=== PATIENT | female | born 1990 | race Caucasian/White ===

== ENCOUNTER → 2016-06-20 | Outpatient (CLI) | payer SELFPAY ==
[~2016-06-20] MED LIST: BENZ-22 PO; PRED20TA PO
[2016-06-20 17:59] VITALS: BP 121/80
--- NOTE | 2016-06-20 17:59 | Urgent Care T Sheet Gen (E) ---
Intake General Temperature (Fahrenheit): 97.3 Pulse: 109 Blood Pressure Systolic: 121 Blood Pressure Diastolic: 80 Respirations: 20 SPO2: 98 Description of Symptoms Patient presents with illness since Saturday. Notes low grade fever up to 99.9. Also notes intermittent nasal congestion, PND and dry cough. Been taking ibuprofen, dayquil and cough drops without lasting relief. Respiratory Constitutional Symptoms: Fever Malaise EENTM: Nose Congestion Throat pain Respiratory: Cough Cardiovascular: No symptoms reported Gastrointestinal/Abdominal: No symptoms reported All Other Systems Reviewed Remaining Systems: All other systems reviewed with negative findings Physical Exam Physical Exam General Appearance: WD/WN No apparent distress Eyes, Ears, Nose, Throat Ex: TMs normal Pharyngeal erythema (cobblestone appearance with clear, thin PND) Other (clear, thin nasal drainage) Neck Exam: SuppleNo Lymphadenopathy Respiratory Exam: Lungs clear (dry cough throughout exam.) Normal breath sounds Cardiovascular Exam: Regular rate, rhythm Departure Urgent Care Impression Impression: Primary Impression: URI (upper respiratory infection) Qualified Code: J00 - Acute nasopharyngitis [common cold] Departure Disposition: HOME OR SELF-CARE Condition: Stable Additional Instructions: Most likely a viral URI. Will treat symptomatically. rest. Fluids I have started the patient on Prednisone x 4 days. No NSAIDs while taking. I have also prescribed Tessalon pearls for cough. If no better once done with steroid, she may start the Amoxicillin 500mg TID x 7 days prescription I have sent home. Return as needed Patient understands DC instructions. All questions were answered. Scripts Prednisone 20 Mg [id number] Mg PO DAILY #8 TAB Prov:ROBERTO CLEMENT 06/20/16 Benzonatate (Tessalon Perles)100 Mg [id number] Mg PO TID PRN COUGH #30 CAP Prov:ROBERTO CLEMENT 06/20/16 End of report . ROBERTO CLEMENT Jun 20, 2016 17:58
== END ==
LOC: MHUC 17:38
PROVIDERS: ATTEND Physician Assistant
DX: J00 Acute nasopharyngitis [common cold] (principal)
CPT/HCPCS: 99203